=== PATIENT | female | born 1940 | race Two or more races ===

== ENCOUNTER 2019-03-07 10:12 | Emergency (ER) | payer MEDICAID ==
[~2019-03-07] VITALS: Ht 162.6 cm; Wt 68.0 kg
[2019-03-07 10:21] VITALS: BP 151/83
== END 2019-03-07 11:19 | disposition home or self-care (01) ==
LOC: ER 10:12
DX: L25.9 Unspecified contact dermatitis, unspecified cause (principal); I10 Essential (primary) hypertension; M19.90 Unspecified osteoarthritis, unspecified site; Z88.0 Allergy status to penicillin
CPT/HCPCS: 99282

== ENCOUNTER 2021-05-04 16:13 | Emergency (ER) | payer MEDICAID ==
[~2021-05-04] VITALS: Ht 160 cm; Wt 62.0 kg
[2021-05-04] MEDS ORDERED: KETOROLAC 30MG/ML VIAL IV STA (16:52)
[2021-05-04 18:02] LABS: BASOPHILS % 0.2 % (0.0-2.0); EOSINOPHILS % 2.5 % (0.0-5.0); HEMATOCRIT. 36.3 % (36.0-48.0); HEMOGLOBIN. 12.5 g/dL (12.0-16.0); LYMPHOCYTES % 39.3 % (20.0-50.0); MEAN CORPUSCULAR HEMOGLOBIN 30.8 pg (28.0-32.0); MEAN CORPUSCULAR VOLUME 89.5 fL (81.0-99.0); MEAN PLATELET VOLUME 9.6 fl (7.4-10.4); MONOCYTES % 11.1 % (2.0-8.0); NEUTROPHILS % 46.9 % (40.0-76.0); PLATELET 181 x1000/uL (130-400); RED BLOOD CELL COUNT 4.05 mill/uL (4.2-5.4); RED CELL DISTRIBUTION WIDTH 13.4 % (11.6-14.6)
[2021-05-04 18:04] LABS: CLARITY URINE CLEAR (CLEAR); COLOR URINE YELLOW (YELLOW); KETONES URINE NEGATIVE (NEGATIVE); LEUKOCYTE ESTERASE URINE TRACE (NEGATIVE); NITRITE URINE NEGATIVE (NEGATIVE); OCCULT BLOOD URINE NEGATIVE (NEGATIVE); PH URINE 7.5 (4.5-8.0); PROTEIN URINE NEGATIVE (NEGATIVE); SPECIFIC GRAVITY URINE 1.015 (1.005-1.030); UROBILINOGEN URINE 0.2 E.U./dL (0.2-1.0)
[2021-05-04 18:10] LABS: CHLORIDE 105 mEq/L (98-107)
[2021-05-04 21:15] VITALS: BP 173/78
[2021-05-04] MEDS ORDERED: IBUP-2029 MT (21:44)
== END 2021-05-04 22:12 | disposition home or self-care (01) ==
LOC: ER 16:13
DX: R10.31 Right lower quadrant pain (principal); I10 Essential (primary) hypertension; M19.90 Unspecified osteoarthritis, unspecified site; Z88.0 Allergy status to penicillin
CPT/HCPCS: 36415; 74176; 80053; 81003; 83690; 85025; 85610; 93005; 96374; 99285; J1885; Z7610

== ENCOUNTER 2023-01-29 14:09 | Emergency (ER) | payer MEDICAID, OTHER ==
[~2023-01-29] VITALS: Ht 157.5 cm; Wt 62.0 kg
[~2023-01-29 14:09] MED LIST: IBUP-2029 MT
[2023-01-29 16:23] LABS: CHLORIDE 107 mEq/L (98-107)
[2023-01-29 17:17] LABS: EOSINOPHILS % 3.7 % (0.0-5.0); HEMATOCRIT. 36.9 % (36.0-48.0); HEMOGLOBIN. 12.5 g/dL (12.0-16.0); LYMPHOCYTES % 38.8 % (20.0-50.0); MEAN CORPUSCULAR HEMOGLOBIN 30.4 pg (28.0-32.0); MEAN CORPUSCULAR VOLUME 89.6 fL (81.0-99.0); MEAN PLATELET VOLUME 8.3 fl (7.4-10.4); NEUTROPHILS % 49.5 % (40.0-76.0); PLATELET 243 x1000/uL (130-400); RED BLOOD CELL COUNT 4.11 mill/uL (4.2-5.4); RED CELL DISTRIBUTION WIDTH 13.4 % (11.6-14.6)
[2023-01-29] MEDS ORDERED: DICYCLOMINE 10 MG/5 ML ORAL SYR PO STA (21:38)
[2023-01-29] MEDS ORDERED: VISCOUS LIDOCAINE 2% 15 ML UDC PO STA (21:38)
[2023-01-29] MEDS ORDERED: MAGNESIUM/ALUMINUM HYDROXIDE/SIMETHICONE 30ML UDC PO STA (21:38)
[2023-01-29] MEDS ORDERED: ONDANSETRON 4MG ODT PO STA (21:38)
[2023-01-29] MEDS ORDERED: VISCOUS LIDOCAINE 2% 15 ML UDC PO NR (22:00)
[2023-01-29] MEDS ORDERED: MAGNESIUM/ALUMINUM HYDROXIDE/SIMETHICONE 30ML UDC PO NR (22:00)
[2023-01-29] MEDS ORDERED: DICYCLOMINE HCL 10MG CAPSULE PO NR (22:00)
[2023-01-29] MEDS ORDERED: ONDANSETRON 4MG ODT PO NR (22:00)
[2023-01-29 23:51] LABS: CLARITY URINE CLEAR (CLEAR); COLOR URINE YELLOW (YELLOW); KETONES URINE NEGATIVE (NEGATIVE); LEUKOCYTE ESTERASE URINE TRACE (NEGATIVE); NITRITE URINE POSITIVE (NEGATIVE); OCCULT BLOOD URINE TRACE (NEGATIVE); PH URINE 7.5 (4.5-8.0); PROTEIN URINE NEGATIVE (NEGATIVE); SPECIFIC GRAVITY URINE 1.006 (1.005-1.030); UROBILINOGEN URINE 0.2 E.U./dL (0.2-1.0)
[2023-01-30] VITALS: BP 107/49
[2023-01-30] MEDS ORDERED: SULFAMETHOXAZOLE/TRIMETHOPRIM 800/160MG TABLET PO ONE
[2023-01-30] MEDS ORDERED: SULF1TAB48 MT (00:24)
== END 2023-01-30 01:48 | disposition home or self-care (01) ==
LOC: ER 14:09
DX: I10 Essential (primary) hypertension (principal); N39.0 Urinary tract infection, site not specified; Z88.0 Allergy status to penicillin
CPT/HCPCS: 36415; 71045; 74176; 80053; 81003; 83690; 84484; 85025; 93005; 99285; Q0162

== ENCOUNTER 2023-12-11 21:16 | Emergency (ER) | payer OTHER ==
[~2023-12-11] VITALS: Ht 157.5 cm; Wt 65.0 kg
[~2023-12-11 21:16] MED LIST changes: +SULF1TAB48 MT
[2023-12-11 21:20] VITALS: O2SAT 95
[2023-12-11 23:12] LABS: BASOPHILS % 0.2 % (0.0-2.0); EOSINOPHILS % 0.6 % (0.0-5.0); HEMATOCRIT. 33.9 % (36.0-48.0); HEMOGLOBIN. 11.5 g/dL (12.0-16.0); LYMPHOCYTES % 23.5 % (20.0-50.0); MEAN CORPUSCULAR HEMOGLOBIN 31.4 pg (28.0-32.0); MEAN CORPUSCULAR HGB CONC 33.9 g/dL (31.0-37.0); MEAN CORPUSCULAR VOLUME 92.4 fL (81.0-99.0); MEAN PLATELET VOLUME 8.6 fl (7.4-10.4); MONOCYTES % 13.8 % (2.0-8.0); NEUTROPHILS % 61.9 % (40.0-76.0); PLATELET 224 x1000/uL (130-400); RED BLOOD CELL COUNT 3.67 mill/uL (4.2-5.4); RED CELL DISTRIBUTION WIDTH 12.9 % (11.6-14.6); WHITE BLOOD COUNT 7.4 x1000/uL (4.5-11.0)
[2023-12-11 23:22] LABS: ALANINE AMINOTRANSFERASE 10 IU/L (10-49); ALBUMIN 4.3 g/dL (3.2-4.8); ASPARTATE AMINOTRANSFERASE 16 IU/L (<34); BILIRUBIN TOTAL 0.8 mg/dL (0.1-1.0); CALCIUM 8.9 mg/dL (8.7-10.4); CARBON DIOXIDE 25 mEq/L (21-32); CHLORIDE 102 mEq/L (98-107); CREATININE 0.8 mg/dL (0.6-1.0); GLUCOSE 120 mg/dL (70-105); PROTEIN TOTAL 7.7 g/dL (6.0-8.3); SODIUM 135 mEq/L (136-145); TROPONIN I HIGH SENSITIVITY 5 ng/L (3.0-34); UREA NITROGEN BLOOD 14 mg/dL (9-23)
[2023-12-12 03:53] VITALS: BP 115/44; PULSE 98; RESP 18; TEMP 98.3
== END 2023-12-12 03:54 | disposition short-term general hospital (02) ==
LOC: ER 21:16
DX: I20.0 Unstable angina (principal); I10 Essential (primary) hypertension; R26.81 Unsteadiness on feet; Z88.0 Allergy status to penicillin; Z90.49 Acquired absence of other specified parts of digestive tract; Z86.39 Personal history of other endocrine, nutritional and metabolic disease
CPT/HCPCS: 36415; 71045; 80053; 83880; 84484; 85025; 93005; 99285